=== PATIENT | female | born 1985 | race Caucasian/White ===

== ENCOUNTER 2018-02-24 08:19 | Day surgery (SDC) | payer OTHER, MEDICAID ==
[~2018-02-24 08:19] MED LIST: CEFAZOLIN 2 GM/50 ML (PMX) 50 ML IVPB; LIDOCAINE 2% (SDV) 5 ML INJ; SOD CHLORIDE 0.9% 1,000 ML IV
[2018-02-24] MEDS ORDERED: PROPOFOL 20 ML (12:22)
[2018-02-24] MEDS ORDERED: CEFAZOLIN 1 GM INJ (12:24)
[2018-02-24] MEDS: BUPIVACAINE 0.25% (MPF) 30 ML INJ (12:49)
[2018-02-24] MEDS ORDERED: BACITRACIN/POLYMYXIN 28.35 GM OINT TOP (12:55)
[2018-02-24] MEDS ORDERED: DEXAMETHASONE 4 MG/ML 1 ML INJ (13:03)
[2018-02-24] MEDS ORDERED: ONDANSETRON 4 MG INJ (13:03)
[2018-02-24] MEDS ORDERED: LABETALOL HCL 20MG INJ IV (13:30)
[2018-02-24] MEDS ORDERED: KETOROLAC 30 MG INJ IV (13:30)
[2018-02-24] MEDS ORDERED: FENTAnyl 50 MCG/ML VIAL IV ×3 (13:30)
[2018-02-24] MEDS ORDERED: MIDAZOLAM 1 MG/ML 2 ML INJ IV (13:30)
[2018-02-24] MEDS ORDERED: METOCLOPRAMIDE 10 MG INJ IV (13:30)
[2018-02-24] MEDS ORDERED: ONDANSETRON 4 MG INJ IV (13:30)
[2018-02-24] MEDS ORDERED: DIPHENHYDRAMINE 50 MG INJ IV (13:30)
[2018-02-24] MEDS ORDERED: hydrALAzine 20 MG INJ IV (13:30)
[2018-02-24] MEDS ORDERED: MEPERIDINE 25 MG INJ IV (13:30)
[2018-02-24] MEDS ORDERED: ALBUTEROL 0.083% (NEB) 2.5 MG/3 ML AMP HHN (13:30)
[2018-02-24] MEDS ORDERED: EPHEDrine SULFATE 50 MG/5 ML SYG IV (13:30)
[2018-02-24] MEDS ORDERED: HYDROCODONE/APAP (5/325) TAB PO (13:30)
[2018-02-24] MEDS ORDERED: OXYCODONE/ACETAMINOPHEN (5/325) TAB PO ×2 (13:30)
== END 2018-02-27 09:08 | disposition home or self-care (01) ==
LOC: SDS 08:19
DX: D17.1 Benign lipomatous neoplasm of skin and subcutaneous tissue of trunk (principal); J45.909 Unspecified asthma, uncomplicated
CPT/HCPCS: 14001; 88307